=== PATIENT | male | born 1945 | race Caucasian/White ===

== ENCOUNTER 2018-03-18 12:45 | Observation (INO) ==
[2018-03-18] MEDS ORDERED: ENOXAPARIN 100 MG/ML SYRINGE SUBCUT STA (13:19)
[2018-03-18] MEDS ORDERED: NITROGLYCERIN 2% OINT 1 INCH/GM PACK TOP STA (13:19)
[2018-03-18] MEDS ORDERED: METOPROLOL TARTRATE 5 MG/5 ML VIAL IV STA (13:19)
[2018-03-18] MEDS ORDERED: ASPIRIN 325 MG TABLET PO STA (13:19)
[2018-03-18 13:26] LABS: Basophils % 0.6 % (0.0-0.8); Eosinophils # 0.1 10*3/uL (0.0-0.87); Eosinophils % 1.6 % (0.00-10.9); Hematocrit 44.2 VOL% (42.0-52.0); Hemoglobin 14.6 GM/DL (14.0-18.0); Immature Granulocytes % 0.3 %; Immature Granulocytes Absolute 0.02 #; Lymphocytes # 1.7 10*3/uL (1.4-4.0); Lymphocytes % 27.4 % (21.2-54.2); Mean Corpuscular Hemoglobin 29 PG (27-34); Mean Corpuscular Volume 87.9 FL (87-102); Mean Platelet Volume 9.5 FL (9.6-12.0); Monocytes # 0.6 10*3/uL (0.11-0.8); Monocytes % 9.1 % (1.7-12.7); Neutrophils # 3.8 10*3/uL (1.4-7.4); Platelet Count 266 T/CUMM (130-400); Red Blood Count 5.03 MC/CUMM (3.8-5.5); Red Cell Distribution Width 13.2 % (9.3-17.3); White Blood Count 6.2 T/CUMM (4-12)
[2018-03-18] MEDS ORDERED: PROMETHAZINE 25 MG TABLET PO STA (13:35)
[2018-03-18 13:51] LABS: Osmolality,Calculated 282.4 MOS/KG (273-304); Potassium 4.6 MMOL/L (3.5-5.1)
[2018-03-18] MEDS ORDERED: MAGNESIUM SULF RIDER 2 GM in PREMIX 1 EACH IV PRN (14:10)
[2018-03-18] MEDS ORDERED: NITROGLYCERIN SL 0.4 MG TABLET SL ONE (14:10)
[2018-03-18] MEDS ORDERED: POTASSIUM CHLORIDE 20 MEQ TABLET PO PRN (14:10)
[2018-03-18] MEDS ORDERED: ZALEPLON 5 MG CAPSULE PO PRN (14:10)
[2018-03-18] MEDS ORDERED: PROMETHAZINE 25 MG TABLET PO PRN (14:10)
[2018-03-18] MEDS ORDERED: MAGNESIUM SULF RIDER 4 GM in PREMIX 1 EACH IV PRN (14:10)
[2018-03-18] MEDS ORDERED: clonazePAM 0.5 MG TABLET PO PRN (14:17)
[2018-03-18] MEDS: SODIUM CHLORIDE 0.45% 1,000 ML IV SCH (15:39)
[2018-03-18] MEDS: METOPROLOL TARTRATE 25 MG TABLET PO SCH (20:21)
[2018-03-18] MEDS: ASPIRIN EC 81 MG TABLET PO SCH (20:21)
[2018-03-19] MEDS ORDERED: ENOXAPARIN 100 MG/ML SYRINGE SUBCUT SCH (02:00)
[2018-03-19 05:27] LABS: Risk Ratio 6.07; VLDL CHOLESTEROL 42.6 MG/DL
[2018-03-19] MEDS: LISINOPRIL 20 MG TABLET PO SCH (09:24)
[2018-03-19] MEDS: METOPROLOL TARTRATE 25 MG TABLET PO SCH ×2 (09:24→20:47)
[2018-03-19] MEDS ORDERED: diphenhydrAMINE CAP 25 MG CAPSULE PO ONE (10:09)
[2018-03-19] MEDS ORDERED: MAGNESIUM SULF RIDER 2 GM in PREMIX 1 EACH IV PRN (10:09)
[2018-03-19] MEDS ORDERED: POTASSIUM CHLORIDE RIDER 10 MEQ in PREMIX 1 EACH IV PRN (10:09)
[2018-03-19] MEDS ORDERED: DIAZEPAM 5 MG TABLET PO ONE (10:09)
[2018-03-19] MEDS: SODIUM CHLORIDE 0.45% 1,000 ML IV SCH ×2 (10:36→18:08)
[2018-03-19] MEDS ORDERED: LIDOCAINE 1% 20 ML VIAL ONE (10:45)
[2018-03-19] MEDS ORDERED: HEPARIN/NACL 0.9% 2 UNITS/ML 1,000 ML IV ONE (10:45)
[2018-03-19] MEDS ORDERED: HYDROmorphone 2 MG/1 ML VIAL ONE (11:23)
[2018-03-19] MEDS ORDERED: MIDAZOLAM 2 MG/2 ML VIAL ONE (11:24)
[2018-03-19] MEDS: ASPIRIN EC 81 MG TABLET PO SCH (20:47)
[2018-03-20] MEDS ORDERED: ENOXAPARIN 40 MG/0.4 ML SYRINGE SUBCUT SCH (04:00)
[2018-03-20 04:35] LABS: Basophils % 0.5 % (0.0-0.8); Eosinophils # 0.2 10*3/uL (0.0-0.87); Hematocrit 44.7 VOL% (42.0-52.0); Hemoglobin 14.5 GM/DL (14.0-18.0); Immature Granulocytes % 0.3 %; Immature Granulocytes Absolute 0.02 #; Lymphocytes # 2.3 10*3/uL (1.4-4.0); Lymphocytes % 30.7 % (21.2-54.2); Mean Corpuscular HGB Conc 32.4 GM/DL (32-36); Mean Corpuscular Hemoglobin 29 PG (27-34); Mean Corpuscular Volume 88.9 FL (87-102); Mean Platelet Volume 9.5 FL (9.6-12.0); Monocytes # 0.7 10*3/uL (0.11-0.8); Monocytes % 9.5 % (1.7-12.7); Neutrophils # 4.2 10*3/uL (1.4-7.4); Platelet Count 247 T/CUMM (130-400); Red Blood Count 5.03 MC/CUMM (3.8-5.5); Red Cell Distribution Width 13.4 % (9.3-17.3); White Blood Count 7.4 T/CUMM (4-12)
[2018-03-20 05:00] LABS: Calcium 8.3 MG/DL (8.5-10.1); Calcium 8.4 MG/DL (8.5-10.1); Osmolality,Calculated 284.1 MOS/KG (273-304); Osmolality,Calculated 285.1 MOS/KG (273-304); Potassium 4.6 MMOL/L (3.5-5.1)
[2018-03-20] MEDS: SODIUM CHLORIDE 0.45% 1,000 ML IV SCH (05:20)
[2018-03-20 07:39] VITALS: BP 128/68
[2018-03-20] MEDS: LISINOPRIL 20 MG TABLET PO SCH (08:53)
[2018-03-20] MEDS: METOPROLOL TARTRATE 25 MG TABLET PO SCH (08:53)
== END 2018-03-20 10:11 | disposition home or self-care (01) ==
LOC: N.EDINP 12:45 → N.ED 12:45 → N.TELEN 14:32
PROVIDERS: ADMIT Internal Medicine Cardiovascular Disease; ATTEND Internal Medicine Cardiovascular Disease
PROC: CLCCHCL (ICD-10-PCS; 2018-03-19 11:45)